=== PATIENT | male | born 1970 | race Caucasian/White ===

== ENCOUNTER 2021-07-13 11:22 | Day surgery (SDC) | payer BC ==
[2021-07-12 11:32] LABS: BASOPHILS % (AUTO) 0.6 % (0-1); EOSINOPHILS # (AUTO) 0.1 X10'3 (0-0.9); EOSINOPHILS % (AUTO) 1.1 % (0-6); LYMPHOCYTES # (AUTO) 1.5 X10'3 (1.1-4.8); LYMPHOCYTES % (AUTO) 22.9 % (21-51); MEAN CORPUSCULAR HEMOGLOBIN 32.9 PG (27.0-31.0); MEAN CORPUSCULAR HGB CONC 34.9 g/dL (33.0-36.5); MEAN CORPUSCULAR VOLUME 94.3 FL (78-98); MEAN PLATELET VOLUME 7.3 FL (7.4-10.4); MONOCYTES # (AUTO) 0.4 X10'3 (0-0.9); NEUTROPHILS # (AUTO) 4.4 X10'3 (1.8-7.7); NEUTROPHILS % (AUTO) 68.4 % (42-75); PRE OP HEMOGLOBIN 17.5 g/dL (14.0-17.9); PRE OP PLATELET COUNT 194 X10'3 (140-440); RED CELL DISTRIBUTION WIDTH 12.8 % (11.5-14.5)
[2021-07-12 11:48] LABS: ALBUMIN/GLOBULIN RATIO 1.4 (1.1-1.5); ALKALINE PHOSPHATASE 65 IU/L (46-116); BLOOD UREA NITROGEN 12 MG/DL (7-18); BUN/CREATININE RATIO 10.6 (5.4-32.0); CALCIUM 9.2 MG/DL (8.5-10.1); CHLORIDE 104 MMOL/L (99-107); CREATININE 1.13 MG/DL (0.60-1.10); PRE OP ALT 38 U/L (30-65); PRE OP ANION GAP 7 (8-16); PRE OP AST 14 U/L (10-37); PRE OP BILIRUB, TOTAL 0.7 MG/DL (0.0-1.0); PRE OP GLUCOSE 189 MG/DL (70-104); PRE OP POTASSIUM 4.1 MMOL/L (3.4-5.1); PRE OP SODIUM 143 MMOL/L (135-145); TOTAL CARBON DIOXIDE 31.6 MMOL/L (24-32); TOTAL PROTEIN 6.9 G/DL (6.4-8.2); eGFR 68 ML/MIN
[~2021-07-13] VITALS: Ht 190.5 cm; Wt 121.1 kg
[2021-07-13] VITALS (12 sets, daily range): BP systolic 129–184; BP diastolic 76–102
[~2021-07-13 11:22] MED LIST: DULA1.5P SQ; GLIM4TAB7 PO; METF-1203 PO; OMEP20CA16 PO; ceFAZolin inj. 3,000 MG in normal saline 100ml IV soln 100 ML IV ONE; famotidine 20mg tablet PO ONE; ringers solution, lacted 1,000 ML IV SCH
[2021-07-13] MEDS ORDERED: LIDOcaine 1% 30ml preserv. free vial ONE (13:39)
[2021-07-13] MEDS ORDERED: BUPIVAcaine/PF 2.5mg/ml (0.25%) 10ml vial ONE ×2 (13:39→13:42)
[2021-07-13] MEDS ORDERED: fentaNYL /PF 50mcg/ml 5ml ampule ONE (13:40)
[2021-07-13] MEDS ORDERED: midazolam 1 mg/ML 2ml injection ONE (13:40)
[2021-07-13] MEDS ORDERED: rocuronium 10mg/ml inj IV ONE (13:40)
[2021-07-13] MEDS ORDERED: propofol inj 20 ML IV ONE (13:41)
[2021-07-13] MEDS ORDERED: BUPIVACAINE liposomal/PF 13.3 MG/ML vial IM ONE (13:42)
[2021-07-13] MEDS ORDERED: ringers solution, lacted 1,000 ML IV SCH (14:45)
[2021-07-13] MEDS ORDERED: morphine 4 MG/ML inj SYRINge IV PRN (14:45)
[2021-07-13] MEDS ORDERED: morphine 2 MG/ML inj. syringe IV PRN (14:45)
[2021-07-13] MEDS ORDERED: proCHLORperazine 10 MG/2 ml inj IV PRN (14:45)
[2021-07-13] MEDS ORDERED: albuterol 2.5 MG/3 ML nebule NEB ONE (14:45)
[2021-07-13] MEDS ORDERED: meperidine/PF 25mg/ml syringe IV PRN ×2 (14:45)
[2021-07-13] MEDS ORDERED: ondansetron/PF 4mg/2ml inj IV PRN (14:45)
[2021-07-13] MEDS ORDERED: neostigmine methylsulfate 1 MG/ML 10ml vial ONE (16:07)
[2021-07-13] MEDS ORDERED: glycopyrrolate 0.2mg/ml inj ONE (16:07)
[2021-07-13] MEDS ORDERED: dexamethasone sod phosphate 4mg/ml inj. ONE (16:14)
[2021-07-13] MEDS ORDERED: ondansetron/PF 4mg/2ml inj ONE (16:15)
[2021-07-13] MEDS ORDERED: oxyCODONE/APAP 5-325mg tablet PO PRN ×2 (16:20)
[2021-07-13] MEDS ORDERED: sugammadex 200mg/2ml injection IV ONE (16:23)
--- NOTE | 2021-07-13 16:30 | NUR ---
Received from OR via [facility], accompanied by Anesthesiologist DR. MUNOZ and report given by Anesthesiologist. PATIENT SLEEPY, NO S/S OF PAIN, V/S WNL, SCD ON, 18G TO LUE, BANDAIDS X 3 TO ABD WITH BINDER IN PLACE-CDI.
--- NOTE | 2021-07-13 17:15 | NUR ---
PT AGGRESSIVE WAKING UP, UNABLE TO STOP D/T PT NOT BEING FULLY AWAKE-PT ENDED UP STANDING AT BEDSIDE AND URINATED ON THE FLOOR UNTIL A URINAL COULD BE GRABBED, RN REMAINED WITH PT, PT REMAINED SAFE AND WAS ABLE TO GET PT BACK TO BED.
[2021-07-13] MEDS: meperidine/PF 25mg/ml syringe IV PRN ×2 (17:22→17:24)
--- NOTE | 2021-07-13 18:00 | NUR ---
PT DID MUCH BETTER AFTER GETTING PAIN UNDER BETTER CONTROL, PT STATES "HE IS A SISSY THALIA WHEN IT COMES TO PAIN". UP GETTING DRESSED, ABLE TO WALK AROUND.
--- NOTE | 2021-07-13 18:10 | NUR ---
PT GIVEN 2 PERCOCET FOR CONTINUED PAIN 11/19, PIV D/CD-CANNULA INTACT, VSS, BANDAIDS X 3-CDI WITH BINDER IN PLACE, PATIENT GIVEN D/C INSTRUCTIONS AND HAS VERBALIZED UNDERSTANDING. PATIENT D/C HOME WITH ALL BELONGINGS AND FAMILY GAVE TRANSPORT HOME.
== END 2021-07-13 18:10 | disposition home or self-care (01) ==
LOC: PAS 11:22
PROVIDERS: ATTEND Surgery
DX: K43.0 Incisional hernia with obstruction, without gangrene (principal); K66.0 Peritoneal adhesions (postprocedural) (postinfection); E11.9 Type 2 diabetes mellitus without complications; K21.9 Gastro-esophageal reflux disease without esophagitis; E66.9 Obesity, unspecified; Z68.28 Body mass index [BMI] 28.0-28.9, adult; Z79.84 Long term (current) use of oral hypoglycemic drugs; Z79.899 Other long term (current) drug therapy; F17.210 Nicotine dependence, cigarettes, uncomplicated; Z72.89 Other problems related to lifestyle; Z98.890 Other specified postprocedural states; Z20.822 Contact with and (suspected) exposure to COVID-19; Z83.3 Family history of diabetes mellitus
CPT/HCPCS: 36415; 49655; 64488; 71046; 80053; 82948; 85025; 87635; 93005; C1713; C1781; C9290; C9803; J0690; J1100; J2175; J2250; J2270; J2405; J2704; J2710; J3010; J3490; J7030; J7120; S2900; Z7506; Z7508; Z7512; A4215; A4618